=== PATIENT | male | born 1940 | race Caucasian/White ===

== ENCOUNTER 2022-05-30 09:11 | Outpatient (CLI) | payer OTHER | END 2022-05-30 18:38 | disposition home or self-care (01) | LOC: SUS 09:11 | DX: R18.8 Other ascites (principal); K74.60 Unspecified cirrhosis of liver | CPT/HCPCS: 76700-TC ==

== ENCOUNTER 2022-06-16 10:30 | Outpatient (CLI) | payer OTHER | END 2022-06-16 19:10 | disposition home or self-care (01) | LOC: SUS 10:30 → EDSTATUS 11:00 → SDS 11:30 → SUS 19:10 | PROVIDERS: ATTEND Internal Medicine Gastroenterology | DX: R18.8 Other ascites (principal); K74.60 Unspecified cirrhosis of liver | CPT/HCPCS: 49083; 82962 ==